=== PATIENT | female | born 1950 | race Caucasian/White ===

== ENCOUNTER 2024-07-22 03:14 | Emergency (ER) | payer MEDICARE, SELFPAY ==
[2024-07-22 03:19] VITALS: BP 168/86; PULSE 68; RESP 16; TEMP 36.2; O2SAT 97; BMI 38.4
--- NOTE | 2024-07-22 03:30 | ECG_ITS ---
Test Reason : HYPERTENSION Blood Pressure : */* mmHG Vent. Rate : 66 BPM Atrial Rate : 66 BPM P-R Int : 210 ms QRS Dur : 134 ms QT Int : 462 ms P-R-T Axes : 25 -39 25 degrees QTcB Int : 484 ms Sinus rhythm with 1st degree A-V block Left axis deviation Right bundle branch block Minimal voltage criteria for LVH, may be normal variant ( R in aVL ) Abnormal ECG No previous ECGs available Referred By: Generic ED Physician Electronically Signed By: Terry Carey
--- NOTE | 2024-07-22 03:38 | ED_ITS ---
HPI - General Adult General Chief complaint: General Medical Stated complaint: High BP Time Seen by Provider: 07/22/24 03:32 Source: patient Mode of arrival: ambulatory Limitations: no limitations History of Present Illness ED Provider: Dr. Isabela Perry HPI narrative: Patient comes to the emergency room complaining of high blood pressure. Patient states that earlier today she went to see her dentist and they could not do the procedure because her blood pressure was in the 160s. Patient takes that she is compliant with the medication, takes metoprolol 25 mg daily. Patient states that she was not feeling quite well today, no chest pain or shortness of breath. Just generalized malaise. Patient states that in 2019 she had myocardial infarction and she had no symptoms other than jaw pain which she does not have today and generalized weakness. Patient states that she took nitro tablets 1 hour prior to arrival. patient states that she took this nitro tablets just in case . Patient did not have chest pain Related Data Previous Rx's ?Medication ?Instructions ?Recorded amlodipine 5 mg tablet 5 mg PO DAILY #30 tabs 07/22/24 Allergies Allergy/AdvReac Type Severity Reaction Status Date / Time amoxicillin [From Augmentin] Allergy Gastrointestinal Verified 07/22/24 03:28 Upset atorvastatin Allergy Gastrointestinal Verified 07/22/24 03:28 Upset clavulanic acid Allergy Gastrointestinal Verified 07/22/24 03:28 [From Augmentin] Upset ezetimibe Allergy Gastrointestinal Verified 07/22/24 03:28 Upset metformin Allergy Gastrointestinal Verified 07/22/24 03:28 Upset metoclopramide [From Reglan] Allergy Unknown Verified 07/22/24 03:28 semaglutide Allergy Gastrointestinal Verified 07/22/24 03:28 Upset Review of Systems 2 Review of Systems: Constitutional : No Weight loss, No Fever, No Chills, No Night Sweats, complaining of fatigue and generalized malaise ENT/Mouth : No Hearing loss, No Ear Pain, No Nasal Congestion, No Sinus Pain, No Hoarseness, No sore throat, No Rhinorrhea, No Swallowing Difficulty Eyes: No Eye Pain, No Swelling, No Redness, No Foreign Body, No Discharge, No Vision Changes Cardiovascular : complaining of high blood pressure, No Chest Pain, No SOB, No Dyspnea on Exertion, No Orthopnea, No Edema, No Palpitations Respiratory : No Cough, No Sputum, No Wheezing, No Smoke Exposure, No Dyspnea Gastrointestinal : No Nausea, No Vomiting, No Diarrhea, No Constipation, No abdominal Pain, No Hematochezia, No Melena Genitourinary : no irregular bleeding, No Dysuria, No Urinary Frequency, No Hematuria, No Urinary Incontinence, No Urgency, No Flank Pain, No Urinary Flow Changes, No Hesitancy Musculoskeletal : No joint pain, No Myalgias, No Joint Swelling Skin : No Skin Lesions, No rash Neuro : No Weakness, No Numbness, No Paresthesias, No Loss of Consciousness, No Dizziness, No Headache Psych : No Anxiety/Panic, No Depression, No SI/HI/AH/VH, No Social Issues, Heme/Lymph: No Bruising, No Bleeding,No Lymphadenopathy Endocrine : No Polyuria, No Polydipsia, No Temperature Intolerance [facility] Past Medical History Medical History (Updated 07/22/24 @ 05:13 by Isabela Perry MD) Diabetes Hypertension Myocardial infarction Social History Social History Smoked in Last 30 Days: No Use of substances other than those prescribed or required for medical reasons: No Advance Directives: No Advance Directives Information Provided: Yes Do you have a plan to hurt others: No Plan Physical Exam ED Vital Signs: Vital Signs - 24 hr 07/22/24 03:19 07/22/24 04:43 07/22/24 05:06 Temperature 97.1 F 98.3 F Pulse Rate 68 80 Respiratory Rate 16 18 Blood Pressure 168/86 H 154/54 H 138/48 L Pulse Oximetry 97 97 Oxygen Delivery Method Room Air Room Air BMI result Body Mass Index 38.4 Medications Administered Discontinued Medications Generic Name Dose Route Start Last Admin Trade Name Freq PRN Reason Stop Dose Admin Amlodipine Besylate 5 mg 07/22/24 04:37 07/22/24 04:43 Amlodipine Besylate 5 Mg Tablet PO 07/22/24 04:38 5 mg ONCE ONE Administration Protocol Medical Decision Making Medical Decision Making MDM Narrative: My interpretation of EKG: Sinus rhythm, heart rate 66, no ST segment depression or elevation, no T-wave inversion, QTC 484 my interpretation of labs, no significant abnormality in patient's hematology, patient's chemistry and troponin does not show any acute abnormality. Serology negative for influenza RSV and COVID. patient takes metoprolol 25 mg. Patient's heart rate attempts was in the 60s. To avoid dropping the heart rate, patient received a dose of 5 mg of amlodipine. Patient's blood pressure 138/48, patient states that she feels Will and is asymptomatic. denies chest pain or shortness of breath. Denies any chest heaviness or pressure. Denies any dizziness or near-syncope feeling Differential Diagnosis Differential Diagnoses: The differential diagnosis associated with the presentation includes ( hypertension, peripheral neuropathy) Admission/Observation Consideration of admission/observation: Escalation of care including admission/observation considered ( given patient's elevated blood pressure and symptoms, observation was considered) Lab Data MDM Lab Attestation statement: I reviewed the patient's lab results. 07/22/24 03:58 07/22/24 03:58 Labs: Lab Results 07/22/24 07/22/24 Range/Units 03:51 03:58 WBC 5.6 (4.8-10.8) X10*3/uL RBC 4.37 (4.20-5.50) X10*6/uL Hgb 13.4 (12.0-16.0) g/dl Hct 39.6 (37.0-47.0) % MCV 90.6 (80.0-98.0) fL MCH 30.7 (27.0-33.0) pg MCHC 33.8 (31.0-35.0) g/dl RDW 13.3 (11.0-16.0) % Plt Count 226 (160-400) X10*3/uL MPV 9.0 L (9.4-12.3) fL Immature Gran % (Auto) 0.5 H (0.0-0.4) % Neut % (Auto) 65.3 (45-73) % Lymph % (Auto) 22.3 (20-40) % [place] % (Auto) 8.3 (2-11) % Eos % (Auto) 3.1 (0-4) % Baso % (Auto) 0.5 (0-2) % Lymph # (Auto) 1.2 (1.2-4.9) X10*3/uL [place] # (Auto) 0.5 (0.1-1.2) X10*3/uL Eos # (Auto) 0.2 (0.0-0.4) X10*3/uL Baso # (Auto) 0.0 (0.0-0.2) X10*3/uL Abs Immat Gran (auto) 0.03 (0.00-0.03) X10*3/uL Absolute Neuts (auto) 3.6 (2.0-8.3) x10*3/uL Absolute Nucleated RBC 0.000 (0.0-0.012) X10*3/uL Nucleated RBC % (auto) 0.0 (0.0-0.2) /100WBC Sodium 144 (135-145) mmol/L Potassium 3.8 (3.3-5.1) mmol/L Chloride 109 H (96-108) mmol/L Carbon Dioxide 24 (22-29) mmol/L Anion Gap 15 (12-20) BUN 11 (9-16) mg/dL Creatinine 0.81 (0.5-1.4) mg/dL Estim Creat Clear Calc 72.0 Estimated GFR > 60 Random Glucose 132 H (60-115) mg/dL Calcium 9.1 (8.4-10.2) mg/dL Magnesium 1.9 (1.6-2.6) mg/dL Total Bilirubin 0.8 (0.0-1.0) mg/dL AST 25 (5-31) U/L ALT 16 (0-31) U/L Alkaline Phosphatase 71 (39-117) U/L Troponin I High Sens < 2.7 (<3.5-17.0) ng/L Total Protein 6.2 L (6.5-8.0) g/dL Albumin 4.1 (3.5-5.0) g/dL Influenza Type A (PCR) NEGATIVE (Negative) Influenza Type B (PCR) NEGATIVE (Negative) RSV RNA Qual (PCR) NEGATIVE (Negative) SARS-CoV-2 RNA (RT-PCR) NEGATIVE (Negative) Critical Care Time Critical Care Time Critical Care Time: Yes Total Critical Care Time: 35 Attestation: I have personally provided critical care time. Time includes review of lab data, radiology results, discussion with consultants, and monitoring for potential decompensation. Intervention performed as documented. Discharge Plan Discharge Clinical Impression: Hypertension Patient Disposition: Home, Self-Care Instructions: Heart Healthy Diet (ED), Chronic Hypertension (ED) Additional Instructions: please keep a log of your blood pressures to share with your primary care physician. Please follow-up with your primary care physician tomorrow. If you have any worsening or new symptoms, please return to the emergency room or call 911 Prescriptions: New amlodipine 5 mg tablet 5 mg PO DAILY Qty: 30 0RF Print Language: Estonian
[2024-07-22 04:03] LABS: MANUAL DIFF FLAG NO
[2024-07-22 04:04] LABS: Basophils Percent Auto 0.5 % (0-2); Eosinophils Absolute Auto 0.2 X10*3/uL (0.0-0.4); Eosinophils Percent Auto 3.1 % (0-4); Hematocrit 39.6 % (37.0-47.0); Hemoglobin 13.4 g/dl (12.0-16.0); Imm Gran Abs Auto 0.03 X10*3/uL (0.00-0.03); Imm Gran Pct Auto 0.5 % (0.0-0.4); Lymphocytes Absolute Auto 1.2 X10*3/uL (1.2-4.9); Lymphocytes Percent Auto 22.3 % (20-40); Mean Corpuscular HGB Conc 33.8 g/dl (31.0-35.0); Mean Corpuscular Hemoglobin 30.7 pg (27.0-33.0); Mean Corpuscular Volume 90.6 fL (80.0-98.0); Monocytes Absolute Auto 0.5 X10*3/uL (0.1-1.2); Monocytes Percent Auto 8.3 % (2-11); Neutrophils Absolute Auto 3.6 x10*3/uL (2.0-8.3); Neutrophils Percent Auto 65.3 % (45-73); Platelet Count 226 X10*3/uL (160-400); Red Blood Count 4.37 X10*6/uL (4.20-5.50); Red Cell Distribution Width 13.3 % (11.0-16.0); White Blood Count 5.6 X10*3/uL (4.8-10.8)
[2024-07-22 04:29] LABS: Alanine Aminotransferase 16 U/L (0-31); Albumin Level 4.1 g/dL (3.5-5.0); Alkaline Phosphatase 71 U/L (39-117); Anion Gap 15 (12-20); Aspartate Amino Transferase 25 U/L (5-31); Bilirubin Total 0.8 mg/dL (0.0-1.0); Blood Urea Nitrogen 11 mg/dL (9-16); Calcium 9.1 mg/dL (8.4-10.2); Carbon Dioxide 24 mmol/L (22-29); Chloride 109 mmol/L (96-108); Estimated Glomerular Filt Rate > 60; Glucose Random 132 mg/dL (60-115); Magnesium 1.9 mg/dL (1.6-2.6); Potassium 3.8 mmol/L (3.3-5.1); Sodium 144 mmol/L (135-145); Total Protein 6.2 g/dL (6.5-8.0); Troponin-I High Sensitivity < 2.7 ng/L (<3.5-17.0)
[2024-07-22 04:42] LABS: Influenza A PCR NEGATIVE (Negative); Influenza B PCR NEGATIVE (Negative); Resp Syncy Virus RNA Qual PCR NEGATIVE (Negative); SARS COV2 PCR INHOUSE NEGATIVE (Negative)
[2024-07-22 04:43] VITALS: BP 154/54
[2024-07-22] MEDS: amLODIPine Besylate 5 MG TABLET PO (04:43)
--- OUTSIDE RECORDS SUMMARY | 2024-07-22 04:56 | XMS_ITS ---
Author Organization [facility] Address [address] [place] [address] Care Team Providers Care Picking Belt Operator Name Role Phone Loida Forbes Primary Care Provider Gianfranco Wood Jr Unavailable [phone] REASON FOR VISIT screening colonoscopy/upper endo Encounters Encounter Location Date Provider Diagnosis [facility] [address] [facility] [address] [place] [id number] 07/06/2024 Gianfranco Price Jr Plan Of Treatment Next Appt Details Provider Name:Gianfranco vargas Jr, 09/26/2024 11:20:00 AM, [address], [address], [place], [address], Progress Notes * RINA WESTFALLDANIAB:1950 (73 yo F)Acc No.[id number]:07/06/2024 Progress Notes Patient:?ANDRA WESTFALL Provider:?Gianfranco Price MD :1950???Age:73 Y???Sex:Female D ate:07/06/2024 Address:[address] [id number] Pcp:Loida Forbes Subjective: * Chief Complaints: * ???1. Screening colonoscopy/ upper endo. * Medical History:? Objective: * Vitals:? Assessment: Plan: * Treatment: * * The named appointment provid er may or may not be the originator of this progress note, and it is not deemed complete until electronically signed by the appointment provider. Sign off status: Pending * Provider:?Gianfranco Price MD Date:?0 07/06/2024 Generated for Aydin martinez/Arnulfo/Abdulazizitting on:?07/22/2024 04:08 AM EDT
[2024-07-22 05:06] VITALS: BP 138/48; PULSE 80; RESP 18; TEMP 36.8; O2SAT 97
[2024-07-22 05:30] VITALS: BP 138/48; PULSE 80; RESP 18; TEMP 36.8; O2SAT 97
== END 2024-07-22 05:31 | disposition home or self-care (01) ==
PROVIDERS: Emergency Provider Emergency Medicine; PCP Internal Medicine
DX: I44.0 Atrioventricular block, first degree (principal); I45.10 Unspecified right bundle-branch block; R53.81 Other malaise; R94.31 Abnormal electrocardiogram [ECG] [EKG]; I10 Essential (primary) hypertension; Z03.818 Encounter for observation for suspected exposure to other biological agents ruled out; Z79.899 Other long term (current) drug therapy
CPT/HCPCS: 0241U; 36415; 80053; 83735; 84484; 85025; 93005; 99283; 99284

== ENCOUNTER → 2024-07-22 03:30 | Outpatient (BNV) | payer MEDICARE, SELFPAY | PROVIDERS: Emergency Provider Emergency Medicine; PCP Internal Medicine; Visit Provider Internal Medicine Cardiovascular Disease | DX: I44.0 Atrioventricular block, first degree (principal); I45.10 Unspecified right bundle-branch block | CPT/HCPCS: 93010 ==

== ENCOUNTER 2024-10-19 12:46 | Outpatient (REF) | payer OTHER, SELFPAY ==
--- OUTSIDE RECORDS SUMMARY | 2024-06-09 11:00 | XMS_ITS | Encounter Summary ---
Author Name [facility] [facility] [place] Address [address] [place] [address] Care Team Providers Care Cotton Wringer Name Role Phone AMBAR TEJEDA Primary Care Provider Unavailabl e YUSRA JHAVERI Primary Care Provider Unavailabl e Insurance Providers: All historical and current Section Date Range: From patient's date of to the date document was created. This section includes the names of all active insurance providers for the patient. Insurance Provider Type of Coverage Plan Name Start of Policy Coverage End of Policy Coverage Group Number Member ID Insurance Provider's Telephone Number Policy Jin's Name Patient's Relationship to Policy Jin AARP [facility] (WNR) MEDICARE ADVANTAGE MCR ([facility]) Mar 02, 2022 [id number] KHOICHARMAINE NDA PATIENT AETNA [facility] ([facility]) MEDICARE ADVANTAGE MCR ([facility]) Apr 30, 2021 [id number] KHOI,CHARMAINE NDA PATIENT AETNA [facility] ([facility]) MEDICARE ADVANTAGE [place] INDIV IDUAL - [place] Apr 30, 2021 [id number] CHARMAINE WESTFALL NDA PATIENT ANTHEM [place] FEP PREFERRED PROVIDER ORGANIZAT ION (PPO) FEP STAND LUIS May 13, 2009 PLAN [id number] AND [id number] [phone] CHARMAINE WESTFALL PATIENT [employer] F[employer] ([id number]) PRESCRIPT ION FEPRX Mar 02, 2010 [id number] [phone] CHARMAINE WESTFALL PATIENT [facility] (WNR) MEDICARE ADVANTAGE [facility] ([facility]) Mar 02, 2022 [id number] CHARMAINE WESTFALL PATIENT [facility] (WNR) MEDICARE ADVANTAGE [facility] ([facility]) Mar 02, 2022 [id number] CHARMAINE WESTFALL PATIENT Selected Encounter This section includes the information on record at [place] for the Encounter. Date/Time Encounter Type Encounter Description Reason Provider Source Jun 09, 2024 03:00 PM OFFICE O/P NEW MOD 45 MIN OPTOMETRY ICD-10-CM H52.4 Presbyopia GUILLERMINA CAMARILLO E Encounter Template Text not used by VA Assessments - Encounter Diagnoses This section includes the primary and secondary diagnoses documented for the Encounter. Date/Time Primary/Secondary Diagnosis Diagnosis Name Provider Source Jun 09, 2024 03:56 PM PRIMARY Presbyopia GUILLERMINA CAMARILLO [facility] [place] [facility] Jun 09, 2024 03:56 PM SECONDARY Dry eye syndrome of bilateral lacrimal glands GUILLERMINA CAMARILLO [facility] [place] [facility] Jun 09, 2024 03:56 PM SECONDARY Hypermetropia, bilateral GUILLERMINA CAMARILLO [facility] [place] [facility] Jun 09, 2024 03:56 PM SECONDARY Presence of intraocular lens GUILLERMINA CAMARILLO [facility] [place] [facility] Jun 09, 2024 03:56 PM SECONDARY Primary open-angle glaucoma, left eye, mild stage OSGUILLERMINA MANCILLA [facility] [place] [facility] Jun 09, 2024 03:56 PM SECONDARY Primary open-angle glaucoma, right eye, mild stage OSGUILLERMINA MANCILLA [facility] [place] [facility] Jun 09, 2024 03:56 PM SECONDARY Regular astigmatism, bilateral GUILLERMINA CAMARILLO [facility] [place] [facility] Jun 09, 2024 03:56 PM SECONDARY 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 Plan of Treatment: Future Appointments (+ 6 months) and Future Tests (+/- 45 days) The Plan of Treatment section includes future care activities for the patient from all [place] treatmentfacilities. This section includes future appointments and future orders which are active, pending or scheduled. Future Appointments This section includes appointments that were scheduled to occur 6 months from the date of the Encounter, up to a maximum of 20 appointments. The data comes from all [place] treatment facilities. Appointment Date/Time Appointment Type Appointme nt Facility Name July 06, 2024 10:40 AM [facility] July 14, 2024 11:[address] [facility] July 14, 2024 12:00 PM AMBULATORY - [facility] Sep 20, 2024 08:30 AM AMBULATORY - [facility] Sep 21, 2024 09:[address] [facility] Social History: Smoking Status (Most current) and Tobacco Use (All prior to encounter date) This section includes the most current, and the historical, smoking and tobacco- related health factors from the AR facility where the Encounter took place. Current Smoking Status This section includes the most current smoking, or tobacco-related health factor, from the AR facility where the Encounter took place. Date/Time Current Smoking Status Comment Facil ity Feb 25, 2024 11:45 AM VA-TOBACCO NEVER U SED CIGARETTES [facility] Tobacco Use History This section includes a history of the smoking, or tobacco-related health factors, that were collected on or before the date of the Encounter. The data comes from the AR facility where the Encounter took place. Date/Time Smoking Status/Tobacco Use Comment F acility Feb 25, 2024 11:45 AM VA-TOBACCO NEVER U SED OTHER [facility] Sep 10, 2021 05:14 PM VA-TOBACCO NEVER USED [facility] Advance Directives: All historical and current Section Date Range: From patient's date of to the date document was created. This section includes ALL of a patient's completed or amended VA Advance and Rescinded Directives. The entries below indicate that a directive exists for the patient, but an actual copy is not included with this document. The data comes from all [place] facilities. Date Advance Directives Provider Source Apr 01, 2022 ADVANCE DIRECTIVE JOHANA BANSAL [facility] Jun 21, 2007 ADVANCE DIRECTIVE JAMESELDON Amador Fanta Sam [facility] Encounter Notes: All associated encounter notes This section contains the clinical notes associated to the Encounter. Date/Time Encounter Note(s) Provider Source Jun 09, 2024 03:11 PM OPTOMETRY CONSULT: LOCAL TITLE: CONSULT REPORT/OPTOMETRY STANDARD TITLE: OPTOMETRY CONSULT DATE OF NOTE: JUN 09, 2024@15:11 ENTRY DATE: JUN 09, 2024@15:11:58 AUTHOR: DONNELL ACMARILLO COSIGNER: URGENCY: STATUS: COMPLETED 73 yo FEMALE NEW to us but has been to [facility] in 2022 Hx of glaucoma OU using latanoprost qhs OU which was just started by a private provider in Jan 2024. + DM since 2005 No recent A1c get ocular migraine without PHIPPS using Systane for dry eye(does not want thru VA) there is an OCT from Apr 2022 in [place] [facility] that shows inferior notches OU aver thickness OD 83 OS 79. I cannot find any other eye exams in [place] [facility] LEON has an Optometry exam Apr 17, 2022 from [facility] which sites possible MIGS procedure that allowed her not to use drops for years. denies eye pain, glare, redness, irritation, flashes, floaters, diplopia, new PHIPPS denies eye injury( x ) + eye surgery( )PC IOL OU with possible MIGs in 2017 + family hx of AMD/glaucoma( )mother with AMD Active Problem Age related macular degeneration H3 02/26/2024June,DEONTE Pablo Hiatal hernia K44.9 02/26/2024June,DEONTE Pablo Murphy's esophagus K22.70 02/26/2024June,DEONTE Pablo Glaucoma suspect of bilateral eyes 02/26/2024June,DEONTE Pablo Recurrent major depression F33.9 03/11/2024June,DEONTE Pablo Obesity E66.9 02/26/2024June,DEONTE Pablo Essential hypertension I10. 02/26/2024June,DEONTE Pablo Hyperlipidemia E78.5 03/11/2024June,DEONTE Pablo History of fracture Z87.81 09/26/2021 KEYSHAWN SANTANA Obstructive sleep apnea G47.33 09/26/2021 KEYSHAWN SANTANA Anemia ([facility] [phone]) D64.9 09/16/2021 KEYSHAWN SANTANA Diabetes mellitus E11.8, Onset 00/0 09/26/2021 KEYSHAWN SANTANA Coronary arteriosclerosis I25.10, O 03/11/2024 AMBAR TEJEDA Chronic diastolic heart failure I50 09/10/2021June,DEONTE Pablo Gastroesophageal reflux disease K21 09/10/2021June,DEONTE Pablo Decreased vitamin D E55.9, Onset 00 09/10/2021June,DEONTE Pablo Active Outpatient Medications (including Supplies): Active Outpatient Medications Status = 1) ACCU-CHEK GUIDE (GLUCOSE) TEST STRIP USE 1 STRIP TO TEST HOLD BLOOD SUGARS TWICE A WEEK NEEDED 2) ALIROCUMAB 75MG/ML INJ 1ML PEN INJECT 75MG (1ML) HOLD SUBCUTANEOUSLY EVERY 2 WEEKS Indication: FOR HIGH CHOLESTEROL 3) ISOSORBIDE MONONITRATE 60MG SA TAB TAKE ONE TABLET BY MOUTH HOLD ONCE DAILY Indication: TO PREVENT ANGINA 4) LANCET,SOFTCLIX USE 1 LANCET DIRECTED TWICE A WEEK HOLD NEEDED TO TEST BLOOD SUGAR 5) LATANOPROST 0.005% OPH SOLN INSTILL QHS INTO EACH EYE AT HOLD BEDTIME Indication: FOR INCREASED PRESSURE IN THE EYE 6) LIRAGLUTIDE (EQV-VICTOZA) 6MG/ML PEN 3ML INJECT 1.2MG ACTIVE SUBCUTANEOUSLY ONCE DAILY Indication: DIABETES 7) METOPROLOL SUCCINATE 25MG SA TAB TAKE ONE TABLET BY MOUTH HOLD ONCE DAILY FOR BLOOD PRESSURE/HEART Indication: FOR HIGH BLOOD PRESSURE 8) NEEDLE,PEN 31G,5MM USE 1 NEEDLE SUBCUTANEOUSLY ONCE DAILY HOLD FOR USE WITH PEN DEVICE FOR VICTOZA INJECTION 9) NITROGLYCERIN 0.4MG SL TAB DISSOLVE ONE TABLET UNDER THE HOLD TONGUE EVERY 5 MINUTES NEEDED IF NO RELIEF AFTER 3 DOSES, CALL 911 OR GO TO NEAREST EMERGENCY ROOM Indication: FOR ACUTE CHEST PAIN 10) PANTOPRAZOLE NA 20MG EC TAB TAKE ONE TABLET BY MOUTH EVERY HOLD MORNING 30 MINUTES BEFORE BREAKFAST Indication: FOR EXCESSIVE PRODUCTION OF STOMACH ACID allergies: REGLAN, AUGMENTIN, METFORMIN, ATORVASTATIN, EZETIMIBE, SEMAGLUTIDE CALCIUM CARBONATE (BULK), EMPAGLIFLOZIN HEMOGLOBIN A1C TREND Collection DT Spec HGBA1c 09/24/2021 09:50 BLOOD 7.1 H VA with OD 20/20-2 OS 20/25+[id number] OS +0.50-1.39p105 refraction OD +0.25-1.68d410 20/20-2 OS +0.50-1.91r894 20/20-2 pupils: PERRL - RAPD OU EOM: full OU Conf: full OU slit lamp cornea clear OU no K spindle OU AC D and Q OU lids/lashes hypertrichiasis OU(latanoprost) mild red rimmed lids OU iris flat OU no tids conj bulbar clear OU palpebral clear OU angles gr IOP OD 18 OS 17 time: 3:30 pm gonio no MIGS obvious OU Side effects of dilation medications discussed, patient stated clear understanding, and patient consented to dilation. Dilation warning given re: driving while dilated, blurred vision for several hours dilated 1% tropicamide( x ) 2.5 % phenylephrine(x ) lens PC IOL OU clear capsules OU vitreous clear OU c/d OD 0.4H/0.6 V inferior notch OS 0.4H/ 0.7V inferior notch no disc hemes OU disc color pink OU disc margins distinct ou macula one MA OD 2-3 soft drusen OS no signs of CNVM OU no macular edema OU vessels 2/3 periph intact ou rare soft drusen OD OS clear A 1) mild open angle glaucoma OU by history and OCT 2) pseudophakia OU 3) DM with mild NPDR OD 4) hyperopia and regular astigmatism OU and presbyopia 5) dry eyes OU 6) early dry non exudative age related macular degeneration OS P 1) continue latanoprost and rtc in June 2024 for OCT and VF Pt states she just had these tests done in private sector and had them sent to us but no sign of them yet in [place] [facility] 2) order new PALs 3) pt advised to control glucose well and rtc annually for DFE 4) order new glasses and sunglasses 5) pt prefers to buy Systane in private sector. 6) She has tried AREDS 2 but it upset her stomach. Total time spent reviewing on chart review, reviewing and taking history, performing the examination, evaluating any ancillary testing and counseling patient as well as entering orders for medications or optical devices including medical decision making was 50 minutes 3 minutes for refraction (if applicable) = total of 47 minutes med reconciliation: All Ophthalmic medications were reconciled ( x ) ( ) pt is not taking any ophthalmic medications ( ) the following ophthalmic meds were discontinued: pt deferred receiving list of medications EYE: Visual Function Reminder: Normal Vision: 20/25 or better: Unspecified disorder of refraction or accommodation (367.9). Diabetes: Patient was educated regarding diabetes and related ocular complications including retinopathy and cataract formation as well as other related systemic complications. The importance of good blood sugar control, blood sugar testing as recommended by their PCP and the importance of timely follow up were all emphasized. Glaucoma: Patient was educated regarding glaucoma/glaucoma suspect as well as the natural history of this diagnosis including prognosis. Stress importance of compliance and persistency with glaucoma medication when prescribed, timely follow up as well as the role of ancillary testing. Exclusion criteria for ancillary testing include significantly reduced acuity, mental status changes affecting the patient's ability to attend to the test or other physical limitations that would prohibit the patient's ability to participate in testing. Macular Degeneration: Patient was educated regarding macular degeneration including both wet and dry varieties as well as the natural history and prognosis of this condition. Education included the role of amsler grid testing , ocular nutraceutical therapy as well as diet and healthy lifestyle choices when applicable. Exclusion criteria includes extremely reduced acuity or cognitive decline for amsler grid testing and other coexisting systemic contraindication for supplements, diet and exercise. Medication Reconciliation: Outpatient: Has the patient been taking medications as documented in the EMLR? YES: The patient has been taking medications as documented in the EMLR. Essential Medication List for Review used to complete this medication reconciliation. INCLUDED IN THIS LIST: Alphabetical list of active outpatient prescriptions dispensed from this AR (local) and dispensed from another [place] or [facility] facility (remote) as well as inpatient orders (local, pending and active), local clinic medications, locally documented non-VA medications, and local prescriptions that have or been discontinued in the past 90 days. - All changes in medications, including all non-VA/Herbal/OTC medications were entered into CPRS. - If there were any medications the patient should no longer take, they were discontinued. - The patient/caregiver was instructed to update this list, discard old lists, and take this list to the next appointment, whether with a VA or non-VA provider. Medication List: JLV Link Data on this list may not be complete. Please check JLV. Allergies/ADRs (Tool #5) FACILITY ALLERGY/ADR -------- [facility] [place] [facility] ATORVASTATIN [facility] [place] [facility] AUGMENTIN [facility] [place] [facility] CALCIUM CARBONATE (BULK) [facility] [place] [facility] EMPAGLIFLOZIN [facility] [place] [facility] EZETIMIBE [facility] [place] [facility] METFORMIN [facility] [place] [facility] REGLAN [facility] [place] [facility] SEM[facility]LUTIDE [facility] [place] [facility] ALOGLIPTIN [facility] [place] AMOXICILL[place]/CLAVULANATE [facility] [place] ATORVASTATIN [facility] [place] CALCIUM CARBONATE [facility] [place] [facility] DULAGLUTIDE [facility] [place] EMPAGLIFLOZIN [facility] [place] EZETIMIBE [facility] [place] METFORMIN [facility] [place] MET[facility]CLOPRAMIDE [facility] [place] ROSUVASTATIN [facility] [place] SEMAGLUTIDE [facility] SIMVASTATIN Med. Reconciliation (Tool #1) INCLUDED IN THIS LIST: Alphabetical list of active outpatient prescriptions dispensed from this AR (local) and dispensed from another AR or [facility] facility (remote) as well as inpatient orders (local pending and active), local clinic medications, locally documented non-VA medications, and local prescriptions that have or been discontinued in the past 90 days. Non-VA Meds Last Documented On: Jun 09, 2024 NOTE The display of VA prescriptions dispensed from another AR or [facility] facility (remote) is limited to active outpatient prescription entries matched to National Drug File at the originating site and may not include some items such as investigational drugs, compounds, etc. NOT INCLUDED IN THIS LIST: Medications self-entered by the patient into personal health records (i.e. [employer]) are NOT included in this list. Non-VA medications documented outside this AR, remote inpatient orders (regardless of status) and remote clinic medications are NOT included in this list. The patient and provider must always discuss medications the patient is taking, regardless of where the medication was dispensed or obtained. OUTPT ALIROCUMAB 75MG/ML INJ 1ML PEN (Status = On Hold) INJECT 75MG (1ML) SUBCUTANEOUSLY EVERY 2 WEEKS FOR HIGH CHOLESTEROL Rx# [id number] Last Released: 03/28/24 Qty/Days Supply: Rx Expiration Date: 03/12/25 Refills Remainin Indication: FOR HIGH CHOLESTEROL Remote ALIROCUMAB 75MG/ML INJ,PEN,1ML INJECT 75MG/ML UNDER THE SKIN EVERY 2 WEEKS TO LOWER CHOLESTEROL Last Filled: 03/07/24 (Hold at [facility]) Rx Expiration Date: 03/08/25 Days Supply: 28 OUTPT ISOSORBIDE MONONITRATE 60MG SA TAB (Status = On Hold) TAKE ONE TABLET BY MOUTH ONCE DAILY TO PREVENT ANGINA Rx# [id number] Last Released: 03/15/24 Qty/Days Supply: 90 Rx Expiration Date: 03/12/25 Refills Remainin Indication: TO PREVENT ANGINA Remote ISOSORBIDE MONONITRATE 60MG TAB,SA TAKE ONE TABLET BY MOUTH ONCE A DAY FOR CHEST PAIN TAKE ON EMPTY STOMACH. SWALLOW WHOLE. DO NOT CRUSH OR CHEW. Last Filled: 02/23/24 (Active at [facility]) Rx Expiration Date: 01/21/25 Days Supply: 90 OUTPT LATANOPROST 0.005% OPH SOLN (Status = On Hold) INSTILL QHS INTO EACH EYE AT BEDTIME FOR INCREASED PRESSURE IN THE EYE Rx# [id number] Last Released: Qt/Days Supply: Rx Expiration Date: 03/12/25 Refills Remainin Indication: FOR INCREASED PRESSURE IN THE EYE OUTPT LATANOPROST 0.005% OPH SOLN (Status = Pending) INSTILL ONE DROP INTO EACH EYE AT BEDTIME Login Date: 06/09/24 Qty/Days Supply: 7 Refills Ordered: 3 Remote LATANOPROST 0.005% SOLN,OPH INSTILL 1 DROP IN BOTH EYES EVERY EVENING FOR GLAUCOMA. KEEP REFRIGERATED UNTIL READY TO USE, THEN STORE AT ROOM TEMPERATURE FOR MAXIMUM OF 42 DAYS. Last Filled: 01/21/24 (Active at [facility]) Rx Expiration Date: 01/19/25 Days Supply: 90 Remote LIRAGLUTIDE (EQV-VICTOZA) 6MG/ML INJ,SOLN,PEN,3ML INJECT 1.2MG UNDER THE SKIN ONCE A DAY FOR DIABETES Last Filled: 02/22/24 (Active at [facility]) Rx Expiration Date: 11/03/24 Days Supply: 45 OUTPT LIRAGLUTIDE (EQV-VICTOZA) 6MG/ML PEN 3ML (Status = Active) INJECT 1.2MG SUBCUTANEOUSLY ONCE DAILY DIABETES DIABETES Rx# [id number] Last Released: 05/24/24 Qty/Days Supply: Rx Expiration Date: 03/12/25 Refills Remainin Indication: DIABETES OUTPT METOPROLOL SUCCINATE 25MG SA TAB (Status = On Hold) TAKE ONE TABLET BY MOUTH ONCE DAILY FOR BLOOD PRESSURE/HEART Rx# [id number] Last Released: 03/15/24 Qty/Days Supply: Rx Expiration Date: 03/12/25 Refills Remainin Indication: FOR HIGH BLOOD PRESSURE Remote METOPROLOL SUCCINATE 25MG TAB,SA TAKE ONE TABLET BY MOUTH ONCE A DAY FOR HIGH BLOOD PRESSURE SWALLOW WHOLE, DO NOT CRUSH OR CHEW (TABLETS MAY BE CUT IN HALF). Last Filled: 02/17/24 (Active at [facility]) Rx Expiration Date: 01/21/25 Days Supply: 90 OUTPT NITROGLYCERIN 0.4MG SL TAB (Status = On Hold) DISSOLVE ONE TABLET UNDER THE TONGUE EVERY 5 MINUTES NEEDED FOR ACUTE CHEST PAIN IF NO RELIEF AFTER 3 DOSES, CALL 911 OR GO TO NEAREST EMERGENCY ROOM Rx# [id number] Last Released: 03/15/24 Qty/Days Supply: 100 Rx Expiration Date: 03/12/25 Refills Remainin Indication: FOR ACUTE CHEST PAIN OUTPT PANTOPRAZOLE NA 20MG EC TAB (Status = On Hold) TAKE ONE TABLET BY MOUTH EVERY MORNING 30 MINUTES BEFORE BREAKFAST FOR EXCESSIVE PRODUCTION OF STOMACH ACID Rx# [id number] Last Released: 03/15/24 Qty/Days Supply: Rx Expiration Date: 03/12/25 Refills Remainin Indication: FOR EXCESSIVE PRODUCTION OF STOMACH ACID Remote PANTOPRAZOLE NA 20MG TAB,EC TAKE ONE TABLET BY MOUTH EVERY MORNING BEFORE A MEAL FOR GASTROESOPHAGEAL REFLUX DISEASE TAKE 30 MINUTES BEFORE MEAL(S) Last Filled: 02/23/24 (Active at [facility]) Rx Expiration Date: 01/21/25 Days Supply: 90 Non-VA PEG-400 0.4/PROP GLY 0.3% OPH SOLN UD 0.3% OPH SOLN DIRECTED INSTILL 1 DROP INTO EACH EYE FOUR TIMES A DAY Non-VA medication not recommended by VA provider. SUPPLIES OUTPT ACCU-CHEK GUIDE (GLUCOSE) TEST STRIP (Status = On Hold) USE 1 STRIP TO TEST BLOOD SUGARS TWICE A WEEK NEEDED Rx# [id number] Last Released: 03/21/24 Qty/Days Supply: 50/180 Rx Expiration Date: 03/12/25 Refills Remainin OUTPT LANCET,SOFTCLIX (Status = On Hold) USE 1 LANCET DIRECTED TWICE A WEEK NEEDED TO TEST BLOOD SUGAR Rx# [id number] Last Released: 03/15/24 Qty/Days Supply: 100/90 Rx Expiration Date: 03/12/25 Refills Remainin OUTPT NEEDLE,PEN 31G,5MM (Status = On Hold) USE 1 NEEDLE SUBCUTANEOUSLY ONCE DAILY FOR USE WITH PEN DEVICE FOR VICTOZA INJECTION Rx# [id number] Last Released: 03/14/24 Qty/Days Supply: 100/90 Rx Expiration Date: 03/12/25 Refills Remainin Remote NEEDLE,PEN 31G,5MM USE 1 NEEDLE UNDER THE SKIN ONCE A DAY FOR VICTOZA Last Filled: 01/25/24 (Active at [facility]) Rx Expiration Date: 01/21/25 Days Supply: 90 PHARMACY TERMS AND POSSIBLE PATIENT ACTIONS INPT = AR inpatient order IV = AR intravenous medication OUTPT = AR outpatient prescription PHARMACY POSSIBLE PATIENT TERMS EXPLANATION ACTIONS -------- ------ ACTIVE A prescription that can be If you have refills, filled at the local AR pharmacy. you may request a refill of this prescription from your VA pharmacy. CLINIC A medication you received during If you have questions a visit to a VA clinic or about this medication emergency department. contact your VA healthcare team. DISCONTINUED A prescription your provider has Contact your VA stopped. It is no longer healthcare team if you available to be sent to you or need more of this picked up at the AR pharmacy medication. window. A prescription which is too old Contact your VA to fill. This does not refer to healthcare team if you the expiration date of the need more of this medication in the container. medication. NON-VA A medication that came from If this medication someplace other than a VA information is pharmacy. This may be a incorrect or out of prescription from either the VA date, please tell your or non VA providers that was VA healthcare team. filled outside the VA. Or, it may be an hgac-[id number] (OTC), herbal, dietary supplements or sample medication. ON HOLD An active prescription that will Contact your VA not be filled until pharmacy pharmacy when you need resolves the issue. more of this medication. PARKED An active prescription that will Contact your VA not be filled until the patient pharmacy when you need requests it. this medication. PENDING This prescription order has been If you have been sent to the pharmacy for review instructed to start and is not ready yet. this medication now, contact your VA pharmacy. SUSPENDED An active prescription that is Contact your AR not scheduled to be filled yet. pharmacy if you need You should receive it before this medication now. you run out. /frannie/ Donnell Camarillo OD Fee Basis Caretaker Grounds Signed: 06/09/2024 16:31 DONNELL CAMARILLO [facility] [facility]
--- NOTE | ~2024-10-19 | MM_ITS ---
EXAMINATION: MM SCREENING DIGITAL BREAST TOMOSYNTHESIS, BILATERAL CLINICAL INFORMATION: Screening. Asymptomatic. COMPARISON: Mammography: Comparison is made with available priors TECHNIQUE: Digital breast mammography with tomosynthesis is performed in both the craniocaudal and mediolateral oblique views along with computer-aided detection (CAD). FINDINGS: There are scattered areas of fibroglandular density (ACR BI-RADS breast composition Category b). Postsurgical changes are stable. Bilateral benign-appearing calcifications are stable. There are no significant masses, abnormal calcifications, or other abnormalities. MM/MM tomosynthesis screening BI IMPRESSION: No mammographic evidence of malignancy. ASSESSMENT: BI-RADS BI-RADS 2 - Benign Findings RECOMMENDATION: Routine annual mammography screening. 1 year F/U This examination should not preclude the clinical evaluation of a suspicious palpable abnormality. This patient's information was entered into a reminder system with a target due date for their next mammogram. Electronically signed by: Iman Hernández DO 11/11/2024 02:24 PM EDT
--- OUTSIDE RECORDS SUMMARY | 2024-10-19 13:37 | XMS_ITS | Patient Health Record ---
Author Organization [facility] Address [address] [place] [address] Care Team Providers Care Bulk Plant Operator Name Role Phone Larissamanfred Marlen Primary Care Provider Unavailabl e Allergies Allergen (clinical drug ingredient) Drug/Non Drug Allergy documented on EMR Reaction Allergy Type Onset Date Status steroid eye drops (uncoded) sharp pain in eye Allergy Active amoxicillin / clavulanate Augmentin GI upset Drug Allergy Active metoclopramide Reglan Unknown Drug Allergy Ac tive Reason For Referral No Information Medications Medication SIG (Take, Route, Frequency, Duration) Notes Start Date End Date Status Pantoprazole Sodium Active Victoza Active Nitroglycerin Active Isosorbide Mononitrate ER Active Metoprolol Succinate ER Active Aspirin 81 MG 1 tablet Orally Once a day Active Problems Problem Type SNOMED Code ICD Code Onset Dates Problem Status W/U Status Risk Notes Problem Paresthesia of right foot (R20.2) Active confirmed Plan Of Treatment Pending Test Test Name Order Date X ray : Foot, right 3v 07/16/2021 Insurance Providers Payer Name Payer Address Payer Phone Subscriber Number Group Number Insured Name Patient Relationship to Insured Coverage Start Date Coverage End Date [employer] Medicare [address] [place] [phone] [id number] Bess Dalton Self - patient is the insured Medical (General) History Medical History History ICD Code hypertension type II diabetes coronary artery disease diastolic heart failure heart attack 2018 with stent and stent 2 020 Surgical History Surgery Date(Month/Year) cholecystectomy 2009 bilateral cataract removed 2017 hysterectomy 2013 heart stent 06/2018 heart stent 01/2020 Hospitalization History Reason Date(Month/Year) heart stent 01/2020 heart attack stent put in 06/2018 hysterectomy 2013 cholecystectomy 2009
--- OUTSIDE RECORDS SUMMARY | 2024-10-19 13:37 | XMS_ITS | Clinical Summary ---
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 Not on ariadna e 07/13/2024 Are you concerned about learning? Not on file 07/13/2024 No 07/13/2024 No 07/13/2024 Digital Access Answer Date Recorded No 07/13/2024 No 07/13/2024 Reliable internet access at home? Not on file 07/13/2024 Device with a working camera? Not on file Comments Unknown Sex and Gender Information Value Date Recorded Sex Assigned at Not on file Legal Sex Female 3:29 PM EDT Gender Identity Not on file Sexual Orientation Not on file Plan of Treatment Upcoming Encounters Date Type Department Care Team (Late st Contact Info) Description 12/13/2024 12:00 PM EDT Office Visit [facility] [address], [address] [place], [place] [id number] Alex Riley DO [address] [place] [address] 12/21/2024 1:20 PM EDT Office Visit [facility] [address] [place] [address] Evelyn Baez PA-C [address] [place] [address] [email or web address] Health Maintenance Due Date Last Done Comments Adult Td,Tdap Booster 1950 LIPID PANEL 1948 DEPRESSION SCREENING 1960 SMOKING Hx and SMOKELESS TOB ACCO SCREENING 1961 HEPATITIS C SCREENING 1966 COLOGUARD 1993 COLONOSCOPY 1993 COLORECTAL CANCER SCREENING 1993 FIT TEST 1993 FOBT 1993 SIGMOIDOSCOPY 1993 VIRTUAL COLONOSCOPY 1993 PNEUMOCOCCAL VACCINES (50+ y ears) (1 of 1 - PCV) 1998 ZOSTER VACCINES (1 of 2) 1998 OSTEOPOROSIS SCREENING INITI AL (ONE-TIME) 2013 COVID-19 VACCINE ( - 2023-2 5 season) 2023 RSV VACCINE (1 - 1-dose 75+ series) 11/23/2023 HEPATITIS A VACCINES Aged Out No long er eligible based on patient's age to complete this topic HIB VACCINES Aged Out No longer eligi ble based on patient's age to complete this topic MENINGOCOCCAL VACCINES (ACWY) Aged Out No longer eligible based on patient's age to complete this topic MENINGOCOCCAL VACCINES (B) Aged Out N o longer eligible based on patient's age to complete this topic Medical Devices Not on file Insurance [facility] AARP MEDICARE REPLACEMENT MEDICARE REPLACEMENT MEDICARE REPLACEMENT MEDICARE REPLACEMENT MEDICARE REPLACEMENT MEDICARE REPLACEMENT Care Teams Digital Developer Relationship Specialty Start Date End Date Loida Forbes DO [address] [place] [id number] PCP - General Internal Medicine 07/13/24 Additional Source Comments The information contained in this document represents components of the legal health record. It is not the complete legal health record.[facility]
--- OUTSIDE RECORDS SUMMARY | 2024-10-19 13:37 | XMS_ITS | Clinical Summary ---
Author Organization [facility] it Address [address] [place] [address] Care Team Providers Care Prefabricator Name Role Phone Unavailable Primary Care Provider Unavailabl e Encounters Date Type Department Care Team Description 09/05/2024 Telephone [facility] Cardiology [facility] [address] [place] [address] Jane Kaiser PA from Last 3 Months Immunizations Name Administration Dates Next Due Pfizer SARS-CoV-2 COVID-19, mRNA, LNP-S, preservative free 05/22/2020,05/01/2020 Surgical History Surgery Date Site/Laterality Comments HYSTERECTOMY PROCEDURE:HYSTERECTOMY CHOLECYSTECTOMY PROCEDURE:CHOLECYSTECTOMY Medical History Medical History Date Comments Diabetes mellitus (CMS/HCC V 24, CMS/HCC V28) DX:Diabetes mellitus (HCC) Heart disease DX:Heart disease Angina pectoris (CMS/HCC V24) DX :Angina pectoris (HCC) History of transfusion DX:Histor y of transfusion GERD (gastroesophageal reflux disease) DX:GERD (gastroesophageal reflux disease) Family History Medical History Relation Name Comments Diabetes Brother Hyperlipidemia Brother Hypertension Brother Hyperlipidemia Father Hypertension Father Diabetes Mother Hyperlipidemia Mother Hypertension Mother Cancer Sister Diabetes Sister Relation Name Status Comments Brother Father Mother Sister Social History Tobacco Use Types Packs/Day Years Used Date Smoking Tobacco: Never Smokeless Tobacco: Never Alcohol Use Standard Drinks/Week Comments Not Currently 0 (1 standard drink = 0.6 oz pur e alcohol) Comments Unknown Sex and Gender Information Value Date Recorded Sex Assigned at Not on file Legal Sex Female 4:14 AM EST Gender Identity Not on file Sexual Orientation Not on file Obstetrics History Last Filed Vital Signs Vital Sign Reading Time Taken Comments Blood Pressure 140/80 06/18/2021 8:25 AM EDT Sit ting R Arm Pulse 113 06/18/2021 8:25 AM EDT Temperature - - Respiratory Rate - - Oxygen Saturation - - Inhaled Oxygen Concentration - - Weight 109 kg (240 lb) 08/15/2021 9:22 AM EDT Height 165.1 cm (5' 5 ) 08/15/2021 9:22 AM EDT Body Mass Index 39.94 08/15/2021 9:22 AM EDT Plan of Treatment Health Maintenance Due Date Last Done Comments Diabetes: Annual Foot Exam 1958 Diabetes: Annual Retina Eye Exam 1960 Hepatitis A Vaccines (1 of 2 - Risk 2-dose series) 11/23/1967 Hepatitis B Vaccines (1 of 3 - Risk 3-dose series) 2008 Diabetes: Annual GFR (Glomerular Filtration Rate) 09/21/2021 09/21/2020, 03/26/2020, 01/11/2020, Additional history exists Colorectal Cancer Screening: Colonoscopy 02/02/2022 Falls Risk Assessment 02/02/2022 Hepatitis C Screening 02/02/2022 Social Influencers of Health Screening 02/02/2022 Hypertension/CHF/CAD Annual BMP Blood Test 02/09/2022 09/21/2020, 03/26/2020, 01/11/2020, Additional history exists Depression Screening 03/02/2024 COVID-19 Vaccine (9 - Pfizer risk season) 2024 12/08/2023, 01/09/2023, 03/18/2022, Additional history exists Diabetes: Annual Urine Albumin-Creatinine Ratio (uACR) 08/31/2024 09/23/2022, 09/15/2019, 09/15/2019, Additional history exists Diabetes: Blood Sugar Control Test (HGBA1C) 08/31/2024 09/15/2019 Cholesterol Screening (Lipid Panel) 09/14/2024 09/15/2019 Osteoporosis Screening (Bone Density Screening) 10/10/2024 10/10/2014, 10/10/2014 Influenza Vaccine (#1) 2024 , 12/02/2022, 10/31/2022, Additional history exists DTaP,Tdap,and Td Vaccines (5 - Td or Tdap) 09/17/2031 09/16/2021, 09/06/2014, 10/28/2005, Additional history exists Pneumococcal Vaccine: 50+ Years Completed 09/26/2021, 03/27/2016, 04/06/2014, Additional history exists Zoster Vaccines Completed 01/07/2022, 09/16/2021 RSV Immunization Adult Patients Completed 02/05/2023 Breast Cancer Screening Discontinued 09/07/2023 HIB Vaccines Aged Out No longer eligi ble based on patient's age to complete this topic HPV Vaccines Aged Out No longer eligi ble based on patient's age to complete this topic IPV Vaccines Aged Out No longer eligi ble based on patient's age to complete this topic MMR Vaccines Aged Out No longer eligi ble based on patient's age to complete this topic Meningococcal ACWY Vaccine Aged Out N o longer eligible based on patient's age to complete this topic Meningococcal B Vaccine Aged Out No l onger eligible based on patient's age to complete this topic RSV Immunization Patients Under 20 months Aged Out No longer eligible based on patient's age to complete this topic Varicella Vaccines Aged Out No longer eligible based on patient's age to complete this topic
--- OUTSIDE RECORDS SUMMARY | 2024-10-19 13:37 | XMS_ITS | Patient Health Record ---
Author Organization [facility] Address [address] [place] [address] Care Team Providers Care Doll Surgeon Name Role Phone Loida Forbes Primary Care Provider Kin e Gianfranco Price Jr Unavailable Da Hernandez PA-C, Jane Unavailable U navailable Allergies Allergen (clinical drug ingredient) Drug/Non Drug Allergy documented on EMR Reaction Allergy Type Onset Date Status Substance with 4-bdaxxgn-2-methylglutary l-coenzyme A reductase inhibitor mechanism of action (substance) Statins Unknown Drug Allergy Active metoclopramide Reglan Unknown Drug Allergy Ac tive Reason For Referral Referring Provider First Name Loida Referring Provider Last Name Leidy Referring Provider Speciality Internal M edicine Referred Organization [facility] Referred Provider Gianfranco Price Jr Referred Address [address] [place] [address], [address],[place], [place],[address], Referred Provider Specialty Gastroentero logy Referral Priority Routine Medications Medication SIG (Take, Route, Frequency, Duration) Notes Start Date End Date Status Nitroglycerin 0.3 MG 1 tablet under the tongue and allow to dissolve as needed. Take every 5 minutes up to 3 times if chest pain persists Sublingual Three times a day for 30 day(s) 09/26/2024 Active Tylenol 8 Hour Arthritis Pain 650 MG 2 tablets as needed Orally every 8 hrs 09/26/2024 Active Metoprolol Succinate ER 25 MG 1 tablet Orally Once a day for 30 day(s) 09/26/2024 Active Isosorbide Mononitrate ER 60 MG 1 tablet in the morning Orally Once a day for 30 day(s) 09/26/2024 Active Victoza 18 MG/3ML as directed Subcutaneous 025 Active Aspirin 81 81 MG 1 tablet Orally Once a day for 30 day(s) 09/26/2024 Active Latanoprost 0.005 % 1 drop into affected eye in the evening Ophthalmic Once a day 09/26/2024 Active Pantoprazole Sodium 20 MG 1 tablet 1/2 t o 1 hour before morning meal Orally Once a day for 30 day(s) 09/26/2024 Active amLODIPine Besylate 10 MG 1 tablet Orall y Once a day for 30 day(s) 09/26/2024 Active Immunizations Vaccine Route Administration Date Status Comme nts Influenza Unknown 11/17/2023 Administered Social History Tobacco Use: Social History Observation Description Date Details (start date - stop date) Never Smoker NA - NA Tobacco Control (Standard) Question Answer Notes Tobacco use: Nonsmoker AUDIT-C (Standard) Question Answer Notes Did you have a drink containing alcohol in the p ast year? 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 Vital Signs Temperature 99.2 degrees Fahrenheit 09/26/2024 Blood pressure diastolic 01 mm Hg 09/26/2024 Height 65 in 09/26/2024 Blood pressure systolic 001 mm Hg 09/26/2024 Weight 234.8 lbs 09/26/2024 BMI 39.07 kg/m2 09/26/2024 Encounters Encounter Location Date Provider Diagnosis [facility] [address] [place] [phone] 09/26/2024 Gianfranco Price Jr Murphy esophagus K22.70 ; GERD (gastroesophageal reflux disease) K21.9 and Encounter for screening for malignant neoplasm of colon Z12.11 [facility] [address] [place] [phone] 06/27/2024 Gianfranco Price Jr [facility] [address] [place] [phone] 10/10/2024 Gianfranco Price Jr Assessments Encounter Date Diagnosis (ICD Code) Assessment Notes Treatment Notes Treatment Clinical Notes Section Notes 09/26/2024 GERD (gastroesopha geal reflux disease) (ICD-10 - K21.9) We discussed gastroesophageal reflux disease today. We discussed diet, lifestyle modifications, and weight management. We discussed treatment of Murphy's esophagus with proton pump inhibitors. She is advised to continue pantoprazole. Further screening for Murphy's esophagus is optional based on her age. We will review her outside records when they become available. She is up-to-date on colorectal cancer screening and further screening is optional as well. We discussed this today. Records will be obtained. Follow-up will be in 12 months, sooner if necessary. 09/26/2024 Murphy esophagus (ICD-10 - K22.70) We discussed gastroesophageal reflux disease today. We discussed diet, lifestyle modifications, and weight management. We discussed treatment of Murphy's esophagus with proton pump inhibitors. She is advised to continue pantoprazole. Further screening for Murphy's esophagus is optional based on her age. We will review her outside records when they become available. She is up-to-date on colorectal cancer screening and further screening is optional as well. We discussed this today. Records will be obtained. Follow-up will be in 12 months, sooner if necessary. 09/26/2024 Encounter for screening for malignant neoplasm of colon (ICD-10 - Z12.11) We discussed gastroesophageal reflux disease today. We discussed diet, lifestyle modifications, and weight management. We discussed treatment of Murphy's esophagus with proton pump inhibitors. She is advised to continue pantoprazole. Further screening for Murphy's esophagus is optional based on her age. We will review her outside records when they become available. She is up-to-date on colorectal cancer screening and further screening is optional as well. We discussed this today. Records will be obtained. Follow-up will be in 12 months, sooner if necessary. Plan Of Treatment Next Appt Details Provider Name:Gianfranco vargas Jr, 09/28/2025 01:15:00 PM, [address] [facility], [address], [place], [address], Insurance Providers Payer Name Payer Address Payer Phone Subscriber Number Group Number Insured Name Patient Relationship to Insured Coverage Start Date Coverage End Date [facility] [employer] [address] [place] [address] [phone] [id number] ANDRA WESTFALL Self - patient is the insured Medical (General) History Medical History History ICD Code type II diabetes Coronary artery disease with history of MO and stent placement Hypertension Obstructive sleep apnea Murphy's esophagus with hiatal hernia, EGD 09/18, stable per patient Colonoscopy with history of polyps, 09/18 , follow-up optional based on age Congestive heart failure Surgical History Surgery Date(Month/Year) Stent placement, 2018 circum flex, second stent placed same vessel 2019 benign lump removed left breast 1999,200 8 Cholecystectomy 2008 total hysterectomy 2012
--- OUTSIDE RECORDS SUMMARY | 2024-10-19 13:37 | XMS_ITS | Clinical Summary ---
Author Organization [facility] Address [address] [place] [address] Care Team Providers Care Radio Survey Worker Name Role Phone Unavailable Primary Care Provider Unavailabl e Allergies Active Allergy Reactions Criticality Noted Date Comments Amoxicillin-Pot Clavulanate 06/19/19 22 GI issues Metformin 06/18/2021 GI issues Metoclopramide 06/18/2021 Tetrahydrozoline 06/18/2021 Steroid eye drops Medications Medication Sig Dispensed Refills Start Date End Date Status Aspirin Low Dose 81 MG EC tablet Take 81 mg by mouth daily. 0 06/18/2021 Active cyclobenzaprine (FLEXERIL) 10 MG tablet TAKE 1 TABLET BY MOUTH 3 TIMES A DAY NEEDED MUSCLE SPASM 0 05/16/2021 Active isosorbide mononitrate (IMDUR) 60 MG 24 hr tablet Take 60 mg by mouth daily. 0 06/18/2021 Active Victoza 18 MG/3ML injection INJECT 1.2 MG SUBCUTANEOUSLY EVERY MORNING 0 06/12/2021 Active metoprolol succinate (TOPROL-XL) 24 hr tablet 25 mg Take 25 mg by mouth daily. 0 06/18/2021 Active nitroglycerin (NITROSTAT) 0.[address] 1 TABLET UNDER THE TONGUE EVERY 5 MINUTES NEEDED FOR CHEST PAIN. 0 06/18/2021 Active pantoprazole (PROTONIX) 20 MG tablet Take 20 mg by mouth daily. 0 06/18/2021 Active Active Problems No known active problems Family History Medical History Relation Name Comments [...] drink = 0.6 oz pur e alcohol) Sex and Gender Information Value Date Recorded Sex Assigned at Not on file Gender Identity Not on file Sexual Orientation Not on file Job Start Date Occupation Industry Not on file Not on file Not on file Last Filed Vital Signs Vital Sign Reading Time Taken Comments Blood Pressure - - Pulse - - Temperature - - Respiratory Rate - - Oxygen Saturation - - Inhaled Oxygen Concentration - - Weight 108.9 kg (240 lb) 08/15/2021 9:22 AM EDT Height 165.1 cm (5' 5 ) 08/15/2021 9:22 AM EDT Body Mass Index 39.94 08/15/2021 9:22 AM EDT Plan of Treatment Health Maintenance Due Date Last Done Comments Hepatitis C Screening 1948 Depression Screening 1960 BMI Counseling 1966 Preventative Health Evaluation 1966 Colon Cancer Screening (Colonoscopy) 1993 Shingrix-Zoster Vaccine (1 of 2) 1998 Fall Risk Assessment 2013 Osteoporosis Screening (DEXA Scan) 2013 COVID-19 Vaccine ( season) 2023 05/22/2020, 05/01/2020 RSV Adult > 60+ Yrs or (1 - 1-dose 75+ series) 11/23/2023 DTap / Tdap / Td (4 - Td or Tdap) 09/06/2024 09/06/2014, 10/28/2005, 10/28/2005 Influenza Vaccine (#1) 2024 , 12/19/2019, 01/07/2018, Additional history exists Pneumococcal Vaccine Completed 03/27/2016, 04/06/19 15 Hepatitis B Vaccines Aged Out No long er eligible based on patient's age to complete this topic RSV Ped < 20 months Aged Out No longe r eligible based on patient's age to complete this topic
== END 2024-10-19 12:47 | disposition home or self-care (01) ==
LOC: HO.MAMMO 12:46
PROVIDERS: Visit Provider Physician Assistant
DX: Z12.31 Encounter for screening mammogram for malignant neoplasm of breast (principal)
CPT/HCPCS: 77063; 77067

== ENCOUNTER → 2024-10-19 13:00 | Outpatient (BNV) | payer OTHER, SELFPAY | PROVIDERS: Visit Provider Internal Medicine | DX: Z12.31 Encounter for screening mammogram for malignant neoplasm of breast (principal) | CPT/HCPCS: 77063; 77067 ==